=== PATIENT | male | born 1970 | race Caucasian/White ===

== ENCOUNTER → 2021-08-05 11:11 | Outpatient (CLI) | payer OTHER, SELFPAY ==
[2021-08-05 13:24] LABS: COVID19 -Nasal RAPID Negative (Negative)
== END ==
PROVIDERS: PCP Family Medicine; Visit Provider Nurse Practitioner Family
DX: Z20.822 Contact with and (suspected) exposure to COVID-19 (principal)
CPT/HCPCS: 87635

== ENCOUNTER 2021-08-07 11:51 | Day surgery (SDC) | payer OTHER, SELFPAY ==
--- NOTE | 2021-08-07 | PATH_ITS ---
[facility] Accession Number: [id number] . 01 Material submitted: . colon - CECUM 2 MM POLYP . 02 Diagnosis: Cecum, Polyp 2mm, Biopsy: Benign lymphoid aggregate. Additional levels were examined. Negative for dysplasia and malignancy. [facility] 08/13/2021 1629 Local . 02 Electronically signed: . Arabella Mcconnell MD, Pathologist NPI- [id number] . 01 Gross description: . CECUM 2 MM POLYP: Received in formalin is 1 fragment(s) of taylor, soft tissue measuring 0.4 x 0.4 x 0.2 cm submitted entirely in 1 cassette(s) /QBJ 08/08/2021 0533 Local . 02 Pathologist provided ICD-10: K63.5 . 02 CPT . 917704 Performed at: 01 [facility] [address] [id number] MD Rodrigo Maya MD Phone: [phone] Performed at: 02 [facility] [address] [place], [place] [id number] MD Arabella Mcconnell MD Phone: [phone]
--- NOTE | 2021-08-07 11:50 | PM.HP.1 ---
History of Present Illness History of Present Illness Date Patient Seen: 08/07/21 Time Patient Seen: 11:50 [place] [facility] [place]: 50 Years Old Male seen today for consideration of a screening colonoscopy. There have been no lower GI symptoms suggesting disease such as change in bowel habits, bleeding, abdominal pain or anemia. There's been no family history of colon cancer or colon polyps. Overall health issues have been stable, including no major cardiac events for at least 6 weeks. Past Medical History: Hyperlipidemia Past Surgical History: None Family History: Father: Olman( @ 85) Natural causes. 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 Meds Home Medications and Allergies Allergies Allergy/AdvReac Type Severity Reaction Status Date / Time No Known Drug Allergies Allergy Verified 08/06/21 17:12 Review of Systems Review of Systems Narrative: Please see HPI. Exam Narrative Exam Narrative: General: well developed, well nourished, in no acute distress, Head: normocephalic and atraumatic, Lungs: normal respiratory effort, clear bilaterally to auscultation, no wheezes rales or rhonchi. (unchanged from 04/23/2021) Heart: normal rate and regular rhythm, no murmurs, rubs, gallops, or clicks, Abdomen: abdomen soft and non-tender without masses, organomegaly, or abdominal wall hernias, bowel sounds positive. (unchanged from 04/23/2021) Skin: intact without suspicious lesions or rashes, Psych: alert and cooperative; normal mood and affect; normal attention span and concentration; cognition, remote and recent memory appear to be intact, Assessment & Plan Assessment & Plan narrative: 1. Screening for colon cancer Plan for colonoscopy. The nature and character of the procedure as well as anticipated results were discussed. The possibility of not completing the procedure was also discussed. Possible complications including aspiration pneumonia, bleeding, perforation and reaction to medications either for sedation or preparation and missed lesions were discussed. Questions were answered and proceeding to the colonoscopy was elected. Informed consent signed. I sincerely appreciate the referral allowing me to participate in this patient's care. Please contact me with any questions or concerns. Time Spent With Patient Critical Care time: I spent a total of [] minutes of critical care time on this patient's care today; this time is exclusive of procedural time.
--- NOTE | 2021-08-07 11:53 | PM.OP.ENDO ---
Operative Date/Time/Diagnoses Date of procedure: 08/07/21 Procedure Notes SCOAP/Timeout: 1:03 p.m. Procedure in detail: ENDOSCOPIST: Tere Wiggins MD Sedation RN: Tete Garcia RN Sedation start time: 1:03 p.m. Sedation end time: 3:25 p.m. PROCEDURE: Colonoscopy with biopsy, cold INDICATIONS: 1. Screening for colon cancer MEDICATION: Levsin 0.125 mg sublingual, incremental doses of Versed and fentanyl until appropriate level sedation achieved. ASA CLASS: 2 CECAL WITHDRAWAL TIME: 10 minutes COMPLICATIONS: None. EXTENT OF PROCEDURE: Cecum. QUALITY OF PREP: Good with portions of liquid stool. PROCEDURE: Prior to insertion of the colonoscope, a digital rectal examination was accomplished with circumferential palpation of the distal rectal mucosa without significant findings being noted. The high-definition colonoscope was passed into the rectum in the usual fashion and advanced over to the cecum without difficulty. The ileocecal valve, appendiceal stoma, and medial wall all could be inspected and a 2 mm polyp was seen and removed with cold biopsy forceps, excellent hemostasis. ASCENDING COLON: As the colonoscope was withdrawn, care was taken to expose and inspect the haustral folds and no abnormalities were seen. HEPATIC FLEXURE: Normal, no polyps, diverticula or other abnormalities. TRANSVERSE COLON: Normal, no polyps, diverticula or other abnormalities. DESCENDING COLON: Normal, no polyps, diverticula or other abnormalities. SIGMOID COLON: Normal, no polyps, diverticula or other abnormalities. RECTUM: Normal. J maneuver was produced. There was no significant perianal disease. The J maneuver was broken. The remainder of the rectum was inspected and there was no external hemorrhoid disease. The scope was withdrawn. IMPRESSION: 1. Cecum polyp x1, 2 mm, removed with cold biopsy forceps PLAN: 1. Follow-up in clinic status post pathology results. The possibility of a missed lesion including a malignancy has been discussed with the patient previously. Potential alarm symptoms have been discussed and should be reported immediately.
[2021-08-07 12:25] VITALS: BMI 24.3
[2021-08-07] MEDS: LACTATED RINGERS 1,000 ML 200 ML IV (12:35)
[2021-08-07] MEDS: HYOSCYAMINE 0.125 MG TABLET PO (12:35)
[2021-08-07 12:36] VITALS: BP 140/92; PULSE 79; RESP 16; TEMP 36.5; O2SAT 97
[2021-08-07] MEDS: fentaNYL 250 MCG/5 ML INJ IV (13:11)
[2021-08-07] MEDS: MIDAZOLAM 5 MG/5 ML VIAL IV (13:13)
[2021-08-07 13:30] VITALS: BP 106/73; PULSE 54; RESP 13; TEMP 36.7; O2SAT 93
[2021-08-07 13:35] VITALS: BP 111/75; PULSE 57; RESP 13; O2SAT 93
[2021-08-07 13:40] VITALS: BP 104/69; PULSE 58; RESP 15; O2SAT 93
[2021-08-07 13:46] VITALS: BP 122/83; PULSE 59; RESP 14; O2SAT 94
[2021-08-07 14:00] VITALS: BP 122/83; PULSE 61; RESP 16; TEMP 36.8; O2SAT 95
== END 2021-08-07 14:15 | disposition home or self-care (01) ==
PROVIDERS: PCP Student in an Organized Health Care Education/Training Program; Referring Provider Student in an Organized Health Care Education/Training Program; Visit Provider Student in an Organized Health Care Education/Training Program
PROC: 0DJD8ZZ Inspection of Lower Intestinal Tract, Via Natural or Artificial Opening Endoscopic (ICD-10-PCS; CPT 45378; principal; 2021-08-07 13:00)
DX: Z12.11 Encounter for screening for malignant neoplasm of colon (principal); K63.5 Polyp of colon
CPT/HCPCS: 45380; J2250; J3010

== ENCOUNTER 2021-12-16 13:01 | Emergency (ER) | payer OTHER, SELFPAY ==
[2021-12-16] VITALS (8 sets, daily range): BP systolic 134–222; BP diastolic 79–91; PULSE 52–60; RESP 14–18; TEMP 36.7; O2SAT 97–100; BMI 25.7
--- NOTE | 2021-12-16 13:09 | DI.RAD.S_ITS ---
PROCEDURE: XR CHEST 1V INDICATIONS: chest pain TECHNIQUE: One view of the chest was acquired. COMPARISON: None. FINDINGS: Surgical changes and devices: None. Lungs and pleura: Lungs are clear. No pleural effusions or pneumothorax. Mediastinum: Mediastinal contours appear normal. Heart size is normal. Bones and chest wall: No suspicious bony lesions. Overlying soft tissues appear unremarkable. IMPRESSION: No acute cardiopulmonary pathology. Dictated by: Augustine Mccann M.D. on 12/16/2021 at 13:47 Approved by: Augustine Mccann M.D. on 12/16/2021 at 13:47
[2021-12-16 13:26] LABS: Add Manual Diff / Slide Review NO; Basophils Absolute Auto 0 /uL (0-100); Basophils Percent Auto 0.6 % (0-2); Eosinophils Absolute Auto 100 /uL (0-450); Eosinophils Percent Auto 0.9 % (2-4); Hematocrit 43.9 % (41-53); Hemoglobin 15.1 g/dL (13.5-17.5); Lymphocytes Absolute Auto 1900 /uL (1100-4500); Lymphocytes Percent Auto 27.6 % (25-40); Mean Corpuscular HGB Conc 34.3 % (30-36); Mean Corpuscular Hemoglobin 30.5 PG (26-34); Mean Corpuscular Volume 88.7 fL (80-100); Monocytes Absolute Auto 600 /uL (0-900); Monocytes Percent Auto 8.7 % (3-14); Neutrophils Absolute Auto 4400 /uL (1500-7000); Neutrophils Percent Auto 62.2 % (50-75); Platelet Count 253 X10^3/uL (150-400); Red Blood Cell Count 4.95 X10^6/uL (4.5-5.9); Red Cell Distribution Width 12.5 % (11.6-14.8)
[2021-12-16 13:51] LABS: Alanine Aminotransferase 56 IU/L (<50); Albumin 4.8 g/dL (3.5-5.0); Albumin Globulin Ratio 1.4 (1.0-2.8); Alkaline Phosphatase 53 U/L (38-126); Aspartate Aminotransferase 59 IU/L (17-59); BUN Creatinine Ratio 15.3 (6-22); Bilirubin Total 0.5 mg/dL (0.2-1.3); Blood Urea Nitrogen 15 mg/dL (9-20); Calcium 9.8 mg/dL (8.4-10.2); Carbon Dioxide 26 mmol/L (22-32); Chloride 104 mmol/L (98-107); Creatine Kinase 616 U/L (55-170); Estimated Glomerular Filt Rate > 60.0 mL/min (>60); Globulin 3.4 g/dL (1.7-4.1); Glucose 102 mg/dL (70-100); Lipase 189 U/L (23-300); Magnesium 2.2 mg/dL (1.6-2.3); Sodium 139 mmol/L (137-145); Total Protein 8.2 g/dL (6.3-8.2)
[2021-12-16 14:01] LABS: Troponin I < 0.012 ng/mL (0.01-0.034)
[2021-12-16 14:07] LABS: CKMB % Relative Index 0.3 % (1.5-5.0); Creatine Kinase MB 1.94 ng/mL (<2.37); HEMOLYSIS 15 (0-50)
--- NOTE | 2021-12-16 14:25 | ED.CHESTPAIN ---
HPI - Chest Pain General Chief Complaint: Chest Pain Stated Complaint: Chest pain/pinching Time Seen by Provider: 12/16/21 14:12 Source: patient Mode of arrival: Ambulatory Limitations: no limitations History of Present Illness HPI narrative: Patient is a 51-year-old male. Otherwise healthy. Here for evaluation of left sided chest discomfort. He states that yesterday he went on a very easy run. He states that several hours afterwards he had a pinching sensation in the left side of his chest. He states that since that time he has had mild discomfort. There have been times ribs worse than others. Does seem to get worse with movement but not 1 specific movement. Not worse with palpation. Not worse with deep breathing. Does not radiate into his arm or into his jaw however it does radiate towards his left arm. Has never had symptoms like this in the past. Has not tried anything for the symptoms prior to arrival. Related Data Allergies Allergy/AdvReac Type Severity Reaction Status Date / Time No Known Drug Allergies Allergy Verified 12/16/21 13:05 Review of Systems Constitutional Constitutional: Denies fever(s) Cardiovascular Cardiovascular: Reports as per HPI and Reports system reviewed and no additional complaints, except as documented Respiratory Respiratory: Reports as per HPI and Reports system reviewed and no additional complaints, except as documented Gastrointestinal Gastrointestinal: Reports system reviewed and no additional complaints, except as documented Musculoskeletal Musculoskeletal: Reports system reviewed and no additional complaints, except as documented Integumentary/Breasts Skin/Breast: Reports system reviewed and no additional complaints, except as documented Neurologic Neurologic: Reports system reviewed and no additional complaints, except as documented and Reports as per HPI Hematologic/Lymphatic On Anticoagulants: No Patient History Medical History Healthy adult Social History household members: spouse Smoking Status: Never smoker Smoking Status: Never smoker alcohol intake frequency: a few times a week Substance Use Type: marijuana Exam Initial Vital Signs Initial Vital Signs: Vital Signs Temperature 98.0 F 12/16/21 13:05 Pulse Rate 60 12/16/21 13:05 Respiratory Rate 14 12/16/21 13:05 Blood Pressure 222/91 H 12/16/21 13:05 Pulse Oximetry 99 12/16/21 13:05 HENKY Head: normal to inspection and normocephalic Chest Chest: No crepitus and No tenderness Resp Effort & Inspection: normal respiratory effort Auscultation: clear to auscultation bilaterally Cardio Rate: regular rate Rhythm: regular rhythm Skin General: no rashes or lesions noted Neuro General: patient alert, patient awake, patient oriented x3 and moves all extremities Extrem General: normal to inspection and capillary refill normal Psych Appearance: grossly normal and well kempt Scores HEART Score Heart Score history: Slightly Suspicious Heart Score EKG: Normal Heart Score Age: 45-64 years old Heart Score risk factors: No known risk factors Heart Score troponin: < or = to normal limit Heart Score Total: 1 Course Orders Ordered: ED Orders 12/16/21 13:09 XR chest 1V Stat 12/16/21 13:16 Complete Blood Count AUTO DIFF Stat Comprehensive Metabolic Panel Stat Lipase Stat Magnesium Stat Troponin & CK Cardiac Panel Stat 12/16/21 13:17 EKG-12 Lead Stat 12/16/21 15:24 Troponin I Stat Vital Signs Vital signs: Vital Signs - 8 hr 12/16/21 13:05 12/16/21 13:17 12/16/21 13:41 Temperature 98.0 F Pulse Rate 60 59 L Respiratory Rate 14 16 Blood Pressure 222/91 H 139/79 148/90 H Pulse Oximetry 99 100 12/16/21 14:00 12/16/21 14:37 12/16/21 15:00 Temperature Pulse Rate 53 L 58 L 52 L Respiratory Rate 16 16 Blood Pressure 134/83 Pulse Oximetry 97 97 98 12/16/21 15:30 12/16/21 16:31 Temperature Pulse Rate 58 L 60 Respiratory Rate 16 18 Blood Pressure 134/83 Pulse Oximetry 99 97 MDM - Chest Pain Lab Data Attestation: I reviewed the patient's lab results. Result diagrams: 12/16/21 13:16 12/16/21 13:16 Labs: Lab Results 12/16/21 12/16/21 12/16/21 Range/Units 13:16 13:16 15:24 WBC 7.0 (4.5-11.0) X10^3/uL RBC 4.95 (4.5-5.9) X10^6/uL Hgb 15.1 (13.5-17.5) g/dL Hct 43.9 (41-53) % MCV 88.7 (80-100) fL MCH 30.5 (26-34) PG MCHC 34.3 (30-36) % RDW 12.5 (11.6-14.8) % Plt Count 253 (150-400) X10^3/uL Neut % (Auto) 62.2 (50-75) % Lymph % (Auto) 27.6 (25-40) % [place] % (Auto) 8.7 (3-14) % Eos % (Auto) 0.9 L (2-4) % Baso % (Auto) 0.6 (0-2) % Neut # (Auto) 4400 (6141-1682) /uL Lymph # (Auto) 1900 (5093-7970) /uL [place] # (Auto) 600 (0-900) /uL Eos # (Auto) 100 (0-450) /uL Baso # (Auto) 0 (0-100) /uL Sodium 139 (137-145) mmol/L Potassium 4.0 (3.4-5.1) mmol/L Chloride 104 (98-107) mmol/L Carbon Dioxide 26 (22-32) mmol/L BUN 15 (9-20) mg/dL Creatinine 0.98 (0.66-1.25) mg/dL Estimated GFR > 60.0 (>60) mL/min BUN/Creatinine Ratio 15.3 (6-22) Glucose 102 H (70-100) mg/dL Calcium 9.8 (8.4-10.2) mg/dL Magnesium 2.2 (1.6-2.3) mg/dL Total Bilirubin 0.5 (0.2-1.3) mg/dL AST 59 (17-59) IU/L ALT 56 H (<50) IU/L Alkaline Phosphatase 53 (38-126) U/L Total Creatine Kinase 616 H (55-170) U/L CK-MB (CK-2) 1.94 (<2.37) ng/mL CK-MB (CK-2) Rel Index 0.3 L (1.5-5.0) % Troponin I < 0.012 < 0.012 (0.01-0.034) ng/mL Total Protein 8.2 (6.3-8.2) g/dL Albumin 4.8 (3.5-5.0) g/dL Globulin 3.4 (1.7-4.1) g/dL Albumin/Globulin Ratio 1.4 (1.0-2.8) Lipase 189 (23-300) U/L Imaging Data Chest x-ray: Radiologist's Impression: [address] [id number] ReportSigned Patient: Matt You R#: [id number]: 1970Acct:[id number]/Sex: 51 / MDate of Service: 12/16/21Loc: EDAccession Number: [id number]? ? Procedure: XR chest 1V Ordering Provider: Vincent Bocanegra D.O. PROCEDURE:? XR CHEST 1V ? INDICATIONS:? chest pain ? TECHNIQUE:? One view of the chest was acquired.? ? COMPARISON:? None. ? FINDINGS:? ? Surgical changes and devices:? None.? ? Lungs and pleura:? Lungs are clear.? No pleural effusions or pneumothorax.? ? Mediastinum:? Mediastinal contours appear normal.? Heart size is normal.? ? Bones and chest wall:? No suspicious bony lesions.? Overlying soft tissues appear unremarkable.? ? IMPRESSION:? No acute cardiopulmonary pathology. ? ? Dictated by: Augustine Mccann M.D. on 12/16/2021 at 13:47? ?? Approved by: Augustine Mccann M.D. on 12/16/2021 at 13:47?? ECG Data Attestation: I personally reviewed and interpreted this ECG as follows: Interpretation: Sinus rhythm Ventricular rate of 62 Normal axis Normal QRS Normal QTC No ST T wave changes MDM Narrative Medical decision making narrative: Low risk heart score. Chest x-ray an EKG unremarkable. Troponin negative x2. Low suspicion for cardiac etiology based on his presentation. His chest x-ray shows no signs of pneumonia. Unsure the exact etiology. I did discuss this with the patient. Did discuss the need to follow-up with his primary doctor and also return precautions. He expressed understanding and agreement. Discharge Plan Departure Patient Disposition: Home Clinical Impression: Atypical chest pain Instructions: DI for Atypical Chest Pain Activity Restrictions/Additional Instructions: I recommend that you contact your primary doctor for a follow-up. Return to the emergency department for any new or worsening symptoms. Referrals: Tere Wiggins MD [Primary Care Provider] -
[2021-12-16 15:56] LABS: Troponin I < 0.012 ng/mL (0.01-0.034)
== END 2021-12-16 16:31 | disposition home or self-care (01) ==
PROVIDERS: Emergency Provider Emergency Medicine; PCP Student in an Organized Health Care Education/Training Program
DX: R07.89 Other chest pain (principal)
CPT/HCPCS: 36415; 71045; 80053; 82550; 82553; 83690; 83735; 84484; 85025; 93005; 99283; 99284

== ENCOUNTER → 2024-08-20 08:19 | Outpatient (CLI) | payer OTHER, SELFPAY | PROVIDERS: PCP Student in an Organized Health Care Education/Training Program; Visit Provider Physician Assistant Surgical | DX: L02.91 Cutaneous abscess, unspecified (principal) | CPT/HCPCS: 87070; 87075; 87205 ==